=== PATIENT | male | born 1985 | race Caucasian/White ===

== ENCOUNTER 2022-02-23 18:07 | Emergency (ER) | payer MEDICAID, OTHER ==
[~2022-02-23] VITALS: Ht 167.6 cm; Wt 78.0 kg
[2022-02-24 00:16] VITALS: BP 125/78
== END 2022-02-24 00:56 | disposition home or self-care (01) ==
LOC: ER 18:07
DX: U07.1 COVID-19 (principal)
CPT/HCPCS: 71045; 99283